=== PATIENT | female | born 1990 | race Two or more races ===

== ENCOUNTER 2017-08-29 16:25 | Emergency (ER) | payer SELFPAY ==
[2017-08-29] MEDS ORDERED: LIDOCAINE 1% INJ-PF (10 MG/ML) 30 ML SDV INJ ONE (18:06)
[2017-08-29] MEDS ORDERED: CEFTRIAXONE INJ 250 MG VIAL IM ONE (18:06)
[2017-08-29] MEDS ORDERED: AZITHROMYCIN 250 MG TABLET PO ONE (18:06)
--- NOTE | 2017-08-29 18:07 | ER Document Report ---
HPI - HPI Patient complains to provider of: Vaginal discharge, concern about STD Onset: Other - 2 days Onset/Duration: Persistent Quality of pain: Cramping Pain Level: 3 Context: Patient presents complaining of lower pelvic cramping with vaginal discharge for the past 2 days. Patient states that her significant other recently reported cheating on her and is concerned that he has a sexually transmitted infection. Patient denies any urinary symptoms. Associated Symptoms: Other - Pelvic cramping, vaginal discharge. denies: Fever Exacerbated by: Denies Relieved by: Denies Similar symptoms previously: No Recently seen / treated by doctor: No - ROS ROS below otherwise negative: Yes Systems Reviewed and Negative: Yes All other systems reviewed and negative - CONSTITUTIONAL Constitutional: DENIES: Fever - GASTROINTESTINAL Gastrointestinal: REPORTS: Abdominal Pain. DENIES: Nausea, Patient vomiting - URINARY Urinary: DENIES: Dysuria, Urgency, Frequency - REPRODUCTIVE Reproductive: DENIES: : - MUSCULOSKELETAL Musculoskeletal: DENIES: Back Pain - DERM Skin Color: Normal Skin Problems: None Past Medical History - General Information source: Patient - Social History Smoking Status: Current Every Day Smoker Smoking Education Provided: Yes Frequency of alcohol use: None Drug Abuse: None Occupation: food beverage attendant Family History: CAD - Mom had [place] at 30, CVA - grandfather - Medical History Medical History: Negative Past Surgical History: Reports: Hx Section - x3, Hx Tubal Ligation Vertical Provider Document - CONSTITUTIONAL Agree With Documented VS: Yes Exam Limitations: No Limitations General Appearance: WD/WN, No Apparent Distress - INFECTION CONTROL TRAVEL OUTSIDE OF THE [place] IN LAST 30 DAYS: No - HEENT HEENT: Atraumatic, Normocephalic - NECK Neck: Normal Inspection - RESPIRATORY Respiratory: Breath Sounds Normal, No Respiratory Distress - CARDIOVASCULAR Cardiovascular: Regular Rate, Regular Rhythm - BACK Back: Normal Inspection. negative: CVA Tenderness-Right, CVA Tenderness-Left - MUSCULOSKELETAL/EXTREMETIES Musculoskeletal/Extremeties: MAEW - NEURO Level of Consciousness: Awake, Alert, Appropriate Motor/Sensory: No Motor Deficit - DERM Integumentary: Warm, Dry, No Rash Course - Vital Signs Vital signs: Temp Pulse Resp BP Pulse Ox 98.5 F 83 16 141/93 H 100 08/29/17 17:00 08/29/17 17:00 08/29/17 17:00 08/29/17 17:00 08/29/17 17:00 Discharge - Discharge Clinical Impression: Vaginal discharge, Trichomoniasis, Bacterial vaginosis UTI (urinary tract infection) Qualifiers: Urinary tract infection type: site unspecified Hematuria presence: with hematuria Qualified Code(s): N39.0 - Urinary tract infection, site not specified Condition: Stable Disposition: HOME, SELF-CARE Instructions: Cephalexin ([facility]), Metronidazole ([facility]), Trichomonas Infection ([facility] ), Urinary Tract Infection ([facility]) Additional Instructions: Return immediately for any new or worsening symptoms Followup with your primary care provider, call tomorrow to make a followup appointment Cultures are pending, we will call if you need any different treatment Prescriptions: Cephalexin Monohydrate [Keflex 500 mg Capsule] 500 mg PO Q6H 5 Days capsule Metronidazole [Flagyl 500 mg Tablet] 500 mg PO BID #14 tablet Forms: Return to Work [facility]errals: [facility] [NO LOCAL MD] - Follow up as needed
[2017-08-29 19:19] LABS: BACTERIA (WET MOUNT) 4+ BACTERIA SEEN; EPITHELIALS (WET MOUNT) 3+ EPITHELIALS SEEN; T.VAGINALIS (WET MOUNT) TRICHOMONAS SEEN; WBCS (WET MOUNT) 1+ WBCS SEEN; YEAST (WET MOUNT) NO YEAST SEEN
[2017-08-29 19:20] LABS: APPEARANCE,URINE CLOUDY; BILIRUBIN,URINE NEGATIVE (NEGATIVE); COLOR,URINE YELLOW; GLUCOSE, URINE NEGATIVE (NEGATIVE); KETONES,URINE NEGATIVE (NEGATIVE); LEUKOCYTE ESTERASE,URINE LARGE (NEGATIVE); NITRITE,URINE NEGATIVE (NEGATIVE); PROTEIN,URINE NEGATIVE (NEGATIVE); URINE SPECIFIC GRAVITY 1.018
[2017-08-29] MEDS ORDERED: METRONIDAZOLE 500 MG TABLET PO ONE (19:51)
[2017-08-29 20:11] VITALS: BP 121/74
[2017-08-29 20:43] LABS: CHLAM PCR NOT DETECTED (NOT DETECT); GON PCR DETECTED (NOT DETECT)
== END 2017-08-29 20:10 | disposition home or self-care (01) ==
LOC: ER 16:25
DX: N39.0 Urinary tract infection, site not specified (principal); A59.01 Trichomonal vulvovaginitis; N76.0 Acute vaginitis; B96.89 Other specified bacterial agents as the cause of diseases classified elsewhere; F17.200 Nicotine dependence, unspecified, uncomplicated; Z98.51 Tubal ligation status
CPT/HCPCS: 99283; 96372; 36415; 87086; 87210; 81025; 86592; 81001; 87491; 87591; J3490; J0696

== ENCOUNTER 2018-02-20 16:59 | Emergency (ER) | payer SELFPAY ==
--- NOTE | 2018-02-20 18:30 | ER Document Report ---
ED Medical Screen (RME) - General Chief Complaint: Lower Abdominal Pain Stated Complaint: LOWER ABDOMINAL PAIN Time Seen by Provider: 02/20/18 18:25 Mode of Arrival: Ambulatory Information source: Patient Notes: 27-year-old female presents with complaint of lower abdominal pain that started 2 days prior to arrival. Patient has had associated nausea without vomiting. Her last bowel movement was this morning. Patient admits to reddish brown discharge. Previous history of gonorrhea in August 2017 which was treated. I have greeted and performed a rapid initial assessment of this patient. A comprehensive ED assessment and evaluation of the patient, analysis of test results and completion of medical decision making process we will be contacted by additional ED providers. PHYSICAL EXAMINATION: Vital signs reviewed GENERAL: Well-appearing, well-nourished and in no acute distress. LUNGS: No respiratory distress Musculoskeletal: Normal range of motion NEUROLOGICAL: Normal speech, normal gait. PSYCH: Normal mood, normal affect. SKIN: Warm, Dry, normal turgor, no rashes or lesions noted. TRAVEL OUTSIDE OF THE [place] IN LAST 30 DAYS: No - HPI Onset: Other Onset/Duration: Intermittent Quality of pain: Cramping Severity: Mild Associated Symptoms: Nausea Exacerbated by: Denies Relieved by: Denies Similar symptoms previously: Yes Recently seen / treated by doctor: No - Related Data Smoking: Non-smoker Frequency of alcohol use: None Drug Abuse: None Allergies/Adverse Reactions: No Known Allergies Allergy (Verified 08/29/17 16:34) Past Medical History - Social History Chew tobacco use (# tins/day): No Frequency of alcohol use: Occasional Drug Abuse: Marijuana Renal/ Medical History: Denies: Hx Peritoneal Dialysis Past Surgical History: Reports: Hx Section - x3, Hx Tubal Ligation Physical Exam - Vital signs Vitals: Temp Pulse Resp BP Pulse Ox 99.3 F 101 H 16 138/82 H 99 02/20/18 17:04 02/20/18 17:04 02/20/18 17:04 02/20/18 17:04 02/20/18 17:04 Course - Vital Signs Vital signs: Temp Pulse Resp BP Pulse Ox 99.3 F 101 H 16 138/82 H 99 02/20/18 17:04 02/20/18 17:04 02/20/18 17:04 02/20/18 17:04 02/20/18 17:04
[2018-02-20 18:53] LABS: APPEARANCE,URINE CLOUDY; BILIRUBIN,URINE NEGATIVE (NEGATIVE); COLOR,URINE YELLOW; GLUCOSE, URINE 50 mg/dL (NEGATIVE); KETONES,URINE NEGATIVE (NEGATIVE); LEUKOCYTE ESTERASE,URINE LARGE (NEGATIVE); NITRITE,URINE NEGATIVE (NEGATIVE); PROTEIN,URINE 100 mg/dL (NEGATIVE); URINE SPECIFIC GRAVITY 1.027; UROBILINOGEN,URINE NEGATIVE mg/dL (<2.0)
[2018-02-20] MEDS ORDERED: AZITHROMYCIN 250 MG TABLET PO ONE (19:10)
[2018-02-20] MEDS ORDERED: CEFTRIAXONE INJ 250 MG VIAL IM ONE (19:10)
[2018-02-20] MEDS ORDERED: LIDOCAINE 1% INJ-PF (10 MG/ML) 30 ML SDV INJ ONE (19:10)
--- NOTE | 2018-02-20 19:16 | ER Document Report ---
HPI - HPI Pain Level: 3 Notes: Patient is a 27-year-old female with no significant past medical history who presents to the ED complaining of burning with urination, urinary frequency, urgency, and suprapubic pressure. Her symptoms have been ongoing for the last 2 days. Patient states that her last menstrual period was 1 month ago and she started bleeding again recently which is normal for her. She has no other vaginal discharge or odor that she is aware of. She has no concern of STD or STI. Patient states that she had a tubal ligation performed in the past as well. Denies any drug allergies. She is eating and drinking without any difficulties. She is having normal bowel movements. Denies any headache, fever , URI, sore throat, chest pain, palpitations, syncope, cough, shortness of breath, wheeze, dyspnea, nausea/vomiting/diarrhea, urinary retention, dysuria, hematuria, back pain, loss of control of bowel or bladder, numbness/tingling, saddle anesthesia, muscle paralysis/weakness, or rash. - ROS Systems Reviewed and Negative: Yes All other systems reviewed and negative - REPRODUCTIVE Reproductive: DENIES: : - DERM Skin Color: Normal Past Medical History - General Information source: Patient - Social History Smoking Status: Current Every Day Smoker Chew tobacco use (# tins/day): No Frequency of alcohol use: Occasional Drug Abuse: Marijuana Family History: CAD - Mom had ID at 30, CVA - grandfather Patient has suicidal ideation: No Patient has homicidal ideation: No Pulmonary Medical History: Reports: Hx Asthma - as child Endocrine Medical History: Reports: Hx Diabetes Mellitus Type 2 - gestational Renal/ Medical History: Denies: Hx Peritoneal Dialysis Past Surgical History: Reports: Hx Section - x3, Hx Tubal Ligation Vertical Provider Document - CONSTITUTIONAL Agree With Documented VS: Yes Notes: PHYSICAL EXAMINATION: GENERAL: Well-appearing, well-nourished and in no acute distress. LUNGS: Breath sounds clear to auscultation bilaterally and equal. No wheezes rales or rhonchi. HEART: Regular rate and rhythm without murmurs, rubs, gallops. ABDOMEN: Soft, nontender, nondistended abdomen. No guarding, no rebound. No masses appreciated. Normal bowel sounds present. No CVA tenderness bilaterally. : deferred Musculoskeletal: FROM to passive/active. Strength 5+/5. Extremities: No cyanosis, clubbing, or edema b/l. Peripheral pulses 2+. Capillary refill less than 3 seconds. NEUROLOGICAL: Normal speech, normal gait. PSYCH: Normal mood, normal affect. SKIN: Warm, Dry, normal turgor, no rashes or lesions noted. - INFECTION CONTROL TRAVEL OUTSIDE OF THE [place] IN LAST 30 DAYS: No Course - Re-evaluation Re-evalutation: 02/20/18 19:13 Patient is an afebrile, well-hydrated, 27-year-old female who presents to the ED with dysuria and suspected UTI. Vitals are acceptable without any significant tachycardia, tachypnea, or hypoxia. PE is otherwise unremarkable. Patient is nontoxic-appearing and is tolerating p.o. without difficulties. See urinalysis results. Urine culture is pending. Chlamydia gonorrhea tests are pending. Patient did opt for Zithromax and Rocephin which we gave today. Her abdomen is otherwise soft and nontender. No further labs or imaging warranted at this time based on H&P. Low suspicion/risk for acute appendicitis, bowel obstruction, acute cholecystitis, acute cholangitis, perforated diverticulitis, incarcerated hernia, pancreatitis, perforated ulcer, peritonitis, sepsis, ectopic , tubo-ovarian abscess, ovarian torsion, or other systemic emergent condition at this time. Patient is aware that her condition can change from initial presentation and she needs to monitor symptoms closely and seek medical attention if any acute changes. I will send her home with a prescription for Keflex. Conservative measures otherwise for symptoms. Recheck with your PCM in 3-5 days. Return to the ED with any worsening/ concerning symptoms otherwise as reviewed in discharge. Patient is in agreement. - Vital Signs Vital signs: Temp Pulse Resp BP Pulse Ox 99.3 F 101 H 16 138/82 H 99 02/20/18 17:04 02/20/18 17:04 02/20/18 17:04 02/20/18 17:04 02/20/18 17:04 - Laboratory Laboratory results interpreted by me: 02/20/18 18:35 Urine Protein 100 H Urine Glucose (UA) 50 H Urine Blood SMALL H Ur Leukocyte Esterase LARGE H Discharge - Discharge Clinical Impression: Acute UTI (urinary tract infection) Condition: Stable Disposition: HOME, SELF-CARE Instructions: Cephalexin ([facility]), Urinary Tract Infection ([facility]) Additional Instructions: Push fluids (i.e. water, cranberry juice) Proper hygenic technique Keep the skin clean Tylenol/ibuprofen as needed May use over the counter AZO for burning with urination x2-3 days Take medications as directed Your gonorrhea and chlamydia tests are pending and you may call tomorrow for your results; otherwise, you have already been treated for both. F/u with your PCM in 3-5 days for a recheck Consider consult with a Urologist for ongoing/worsening symptoms. Return to the ED with any worsening symptoms and/or development of fever, headache, chest pain, palpitations, syncope, shortness of breath, trouble breathing, abdominal pain, n/v/d, blood in stool/urine, loss of control of bowel /bladder, urinary retention, or other worsening symptoms that are concerning to you. Prescriptions: Cephalexin Monohydrate [Keflex 500 mg Capsule] 500 mg PO TID #21 capsule Forms: Elevated Blood Pressure, Smoking Cessation Education Referrals: [facility] [Provider Group] - Follow up as needed [facility] [Provider Group] - Follow up as needed
[2018-02-20 19:54] VITALS: BP 123/70
[2018-02-20 20:15] LABS: CHLAM PCR NOT DETECTED (NOT DETECT); GON PCR NOT DETECTED (NOT DETECT)
== END 2018-02-20 19:58 | disposition home or self-care (01) ==
LOC: ER 16:59
DX: N39.0 Urinary tract infection, site not specified (principal); F17.200 Nicotine dependence, unspecified, uncomplicated; Z98.51 Tubal ligation status
CPT/HCPCS: 99283; 87086; 81025; 87088; 81001; 87186; 87491; 87591; J3490; J0696

== ENCOUNTER 2018-09-27 17:48 | Emergency (ER) | payer SELFPAY ==
--- NOTE | 2018-09-27 19:43 | ER Document Report ---
HPI - HPI Patient complains to provider of: ankle pain Time Seen by Provider: 09/27/18 19:11 Onset: Last week Onset/Duration: Sudden Quality of pain: Achy Severity: Severe Pain Level: 4 Context: Patient presents emergency department with complaints of left ankle pain. She reports her dog, hadley, ran into her ankle last week. She reports she can barely walk on it. She reports pain when walking. Denies past medical history of injury the ankle. No complaints of fever vomiting diarrhea. Patient reports she took Motrin this morning for pain. She declines pain medication at this time. Associated Symptoms: None Exacerbated by: Walking Relieved by: Denies Similar symptoms previously: No Recently seen / treated by doctor: No - REPRODUCTIVE Reproductive: DENIES: : Past Medical History - General Information source: Patient Last Menstrual Period: august - Social History Smoking Status: Current Every Day Smoker Cigarette use (# per day): Yes Frequency of alcohol use: Social Drug Abuse: Marijuana Lives with: Family Family History: CAD - Mom had [place] at 30, CVA - grandfather Patient has suicidal ideation: No Patient has homicidal ideation: No Pulmonary Medical History: Reports: Hx Asthma - as child Endocrine Medical History: Reports: Hx Diabetes Mellitus Type 2 - gestational Renal/ Medical History: Denies: Hx Peritoneal Dialysis Past Surgical History: Reports: Hx Section - x3, Hx Tubal Ligation Vertical Provider Document - CONSTITUTIONAL Agree With Documented VS: Yes Exam Limitations: No Limitations General Appearance: WD/WN, No Apparent Distress - INFECTION CONTROL TRAVEL OUTSIDE OF THE [place] IN LAST 30 DAYS: No - HEENT HEENT: Atraumatic, Normocephalic - NECK Neck: Supple - RESPIRATORY Respiratory: No Respiratory Distress - MUSCULOSKELETAL/EXTREMETIES Musculoskeletal/Extremeties: MAEW, FROM, Tender - Left lateral ankle tender to palpation no obvious deformity no swelling no erythema good cap refill good pedal pulse - NEURO Level of Consciousness: Awake, Alert, Appropriate Motor/Sensory: No Motor Deficit - DERM Integumentary: Warm, Dry Course - Re-evaluation Re-evalutation: 09/27/18 20:33 Patient instructed on negative x-ray. Patient offered crutches and declined. Will place Azael wrap for patient comfort. She was offered pain medication declined. Dictation of this chart was performed using voice recognition software; therefore, there may be some unintended grammatical errors. - Vital Signs Vital signs: Temp Pulse Resp BP Pulse Ox 98.7 F 78 18 128/81 H 99 09/27/18 17:55 09/27/18 17:55 09/27/18 17:55 09/27/18 17:55 09/27/18 17:55 - Diagnostic Test Radiology reviewed: Image reviewed, Reports reviewed - Ankle x-ray negative no acute fracture Discharge - Discharge Clinical Impression: Left ankle pain Condition: Stable Disposition: HOME, SELF-CARE Instructions: Azael Wrap ([facility]), Use of [id number] Ibuprofen ([facility]), Ice & Elevation ([facility]) Additional Instructions: *You have been evaluated for ankle pain *Maintain the azael wrap for comfort *Rest/Ice/Elevate your ankle *Follow up with orthopedics for continued pain-call for an appointment *Take ibuprofen as indicated for pain *Return to ED for worsening condition, changes, needs Monitor your blood pressure. Your blood pressure was elevated today. This may be because you were anxious, in pain or because you need medication. It is important to follow up with your primary care provider for full evaluation. Forms: Elevated Blood Pressure, Return to Work
--- NOTE | 2018-09-27 20:21 | RADIOLOGY REPORT (SQ) ---
EXAM DESCRIPTION: Left ankle RadLex: XR ANKLE 3 OR MORE VIEWS Views: 3 CLINICAL HISTORY: 28 years Female, ankle pain COMPARISON: None. FINDINGS: Negative for acute fracture, dislocation, or radiopaque foreign body. Small Achilles calcaneal spur is noted. No lytic changes or periosteal reaction. No soft tissue air. IMPRESSION: 1. No acute findings.
[2018-09-27 20:45] VITALS: BP 119/63
== END 2018-09-27 20:45 | disposition home or self-care (01) ==
LOC: ER 17:48
DX: M25.572 Pain in left ankle and joints of left foot (principal); W54.1XXA Struck by dog, initial encounter; F17.210 Nicotine dependence, cigarettes, uncomplicated; F12.10 Cannabis abuse, uncomplicated
CPT/HCPCS: 99283